=== PATIENT | male | born 1970 | race Caucasian/White ===

== ENCOUNTER 2018-02-15 07:41 | Day surgery (SDC) ==
[2018-02-15] MEDS: TETRACAINE 0.5% UNIT-DOSE OP PRN ×2 (08:49→09:30)
[2018-02-15] MEDS: BETADINE OPTH PREP OP PRN ×2 (08:49→09:30)
[2018-02-15] MEDS: CYCLOGYL 2% OPTH OP PRN ×3 (08:50→09:05)
[2018-02-15] MEDS ORDERED: LIDOCAINE 1% 20 ML MDV ID STA (08:54)
[2018-02-15] MEDS ORDERED: BRIMONIDINE TARTRATE 0.2% OPTH SOL OP PRN (08:54)
[2018-02-15] MEDS ORDERED: ZOFRAN 4 MG/2 ML IVP ONE (08:54)
[2018-02-15] MEDS: DEX-MOXI-KETOR OPTH INJ 1/0.5/0.4 MG/ML IO ONE ×2 (09:38→09:44)
[2018-02-15] MEDS: BSS WITH EPINEPHRINE OP ONE ×2 (09:38→09:44)
[2018-02-15] MEDS: LIDOCAINE 1%/PHENYLEPHRINE 1.5% BSS (SURGERY) INTRAOCULA ONE ×2 (09:38→09:44)
[2018-02-15] MEDS ORDERED: SUBLIMAZE ONE (09:40)
[2018-02-15] MEDS ORDERED: ZOFRAN 4 MG/2 ML ONE (09:40)
[2018-02-15] MEDS ORDERED: VERSED ONE (09:40)
[2018-02-15 12:17] VITALS: TEMP 98.2
[2018-02-15 16:14] VITALS: BP 127/66
== END 2018-02-15 10:25 | disposition home or self-care (01) ==
LOC: SURG 07:41
PROVIDERS: ATTEND Ophthalmology
DX: H52.4 Presbyopia (principal)